=== PATIENT | female | born 1990 | race Caucasian/White ===

== ENCOUNTER 2017-01-17 19:18 | Emergency (ER) | payer OTHER ==
[~2017-01-17] VITALS: Ht 165.1 cm; Wt 75.8 kg
[~2017-01-17 19:18] MED LIST: ATARAX,VISTARIL50 MG PO; BUSPAR15 MG PO; CEFDINIR300 MG PO; CLONAZEPAM0.5 MG PO; LEXAPRO20 MG PO; NOHOMEMEDS; SEROQUEL12.5 MG PO
[2017-01-17] MEDS ORDERED: PEN-VEE K,VEET500 MG PO (20:05)
[2017-01-17] MEDS ORDERED: NAPROSYN500 MG PO (20:07)
[2017-01-17 20:19] VITALS: BP 145/93
== END 2017-01-17 20:20 | disposition home or self-care (01) ==
LOC: EME 19:18
PROC: 3E0T3BZ Introduction of Anesthetic Agent into Peripheral Nerves and Plexi, Percutaneous Approach (ICD-10-PCS; principal; 2017-01-17)
DX: K02.9 Dental caries, unspecified (principal); K08.539 Fractured dental restorative material, unspecified
CPT/HCPCS: 99281; 99283

== ENCOUNTER 2017-11-25 11:50 | Emergency (ER) | payer OTHER ==
[~2017-11-25] VITALS: Ht 165.1 cm; Wt 83.1 kg
[~2017-11-25 11:50] MED LIST changes: +NAPROSYN500 MG PO; +PEN-VEE K,VEET500 MG PO
[2017-11-25 12:18] LABS: APPEARANCE CLEAR ((CLEAR)); BILIRUBIN NEGATIVE; BLOOD MODERATE; COLOR AMBER ((YELLOW)); GLUCOSE (STRIP) NEGATIVE; KETONES NEGATIVE; LEUKOCYTES LARGE; NITRITE POSITIVE; PROTEIN (STRIP) NEGATIVE; SPECIFIC GRAVITY 1.001 (1.000-1.030); UROBILINOGEN 0.2 MG/DL (0.2-1.0)
[2017-11-25 12:36] LABS: HEMATOCRIT 44.8 % (36.0-46.0); HEMOGLOBIN 15.6 G/DL (11.9-15.5); MCH 29.8 PG (29.0-34.0); MCHC 34.8 G/DL (30.0-36.0); MCV 85.7 FL (83-99); PLATELET COUNT 328 K/uL (156-360); RBC DIS.WIDTH-CV 12.6 % (11.8-14.6); RBC DIS.WIDTH-SD 39.5 % (39-53); RED BLOOD COUNT 5.23 M/uL (3.80-5.20); WHITE BLOOD COUNT 13.2 K/uL (4.1-10.2)
[2017-11-25 12:38] LABS: RED BLOOD CELLS 0-5 /HPF (0-5)
[2017-11-25 12:39] LABS: BACTERIA RARE /HPF; EPITHELIAL CELLS RARE /HPF; MUCUS RARE /LPF; UCUL ADDED? YES; WHITE BLOOD CELLS 40-50 /HPF (0-5)
[2017-11-25 12:47] LABS: CHLORIDE 100 mEq/L (99-109); POTASSIUM 3.7 mEq/L (3.7-5.4); SODIUM 137 mEq/L (136-147)
[2017-11-25 12:49] LABS: GLUCOSE 117 mg/dL (70-99)
[2017-11-25 12:53] LABS: CREATININE 0.7 mg/dL (0.6-1.3); GFR ESTIMATE (CALCULATED) > 59 mL/min/; UREA NITROGEN (BUN) 7 mg/dL (9-23)
[2017-11-25 13:04] LABS: QUANTITATIVE HCG < 4.0 MIU/ML
[2017-11-25] MEDS ORDERED: CIPRO500 MG PO (15:25)
[2017-11-25 16:00] VITALS: BP 114/76
== END 2017-11-25 16:27 | disposition home or self-care (01) ==
LOC: EME 11:50
DX: N12 Tubulo-interstitial nephritis, not specified as acute or chronic (principal); F41.9 Anxiety disorder, unspecified; F42.9 Obsessive-compulsive disorder, unspecified; Z87.440 Personal history of urinary (tract) infections
CPT/HCPCS: 74176; 76770; 80048; 81003; 84702; 85027; 87077; 87086; 87186; 99281; 99284